=== PATIENT | female | born 1985 | race Caucasian/White ===

== ENCOUNTER 2018-12-13 03:43 | Inpatient (IN) | payer OTHER ==
[2018-12-13] MEDS ORDERED: Oxytocin 10 Units/1 ML SDV ONE (04:12)
[2018-12-13] MEDS ORDERED: Lidocaine 1% 50 ML MDV ONE (04:18)
--- NOTE | 2018-12-13 04:54 | PCM.LDHP ---
L&D History of Present Illness - General Date of Service: 12/13/18 Admit Problem/Dx: Admission Diagnosis/Problem Admission Diagnosis/Problem Source of Information: Patient History Limitations: Reports: No Limitations - History of Present Illness Introduction:: 33-year-old 001 ALLIE 12/11/18 estimated gestational age 40 weeks and 2 days presented to labor and delivery with history of contractions since 0230 hours, presenting at approximately 0335 hrs. Cervical exam check at that time showed patient was complete I was called to see patient at 0357 hrs. arriving at 0407 hrs. and delivery occurred at 0414 hrs. GBS negative. 05/26/18 A-, antibody screen negative, hemoglobin hematocrit/12.9/38.0 platelets 222,000, rubella immune, serology nonreactive, hepatitis B surface antigen negative, HIV negative, urine culture mixed zack suggestive of contamination, GC and chlamydia probe were negative. 09/17/18 hemoglobin/hematocrit 12.0 35.8 platelets 185,001 hour OB glucose screen 118. Patient given rogue M on 09/17/18. 11/18/18 group B strep negative. Patient had precipitous delivery after arrival at the hospital with position present (myself) Location, : Reports: Abdomen, Lower back, Pelvic Quality: Reports: Ache, Pressure Severity: Severe Pain Score: 9 Improves with: Reports: None Worsens with: Reports: None Past Medical History Neurological History: Reports: Migraines, Other (See Below) (History of pseudotumor cerebri 2008) H&P Review of Systems - Review of Systems: Review Of Systems: See Below General: Reports: No Symptoms HEENT: Reports: No Symptoms Pulmonary: Reports: No Symptoms Cardiovascular: Reports: No Symptoms Gastrointestinal: Reports: No Symptoms Genitourinary: Reports: No Symptoms Musculoskeletal: Reports: No Symptoms Skin: Reports: No Symptoms Psychiatric: Reports: No Symptoms Neurological: Reports: No Symptoms Hematologic/Lymphatic: Reports: No Symptoms Immunologic: Reports: No Symptoms L&D Exam - Exam Exam: See Below - OB Specific Fundal Height In cm: 41 Contraction Duration (sec): 60 Contraction Frequency (min): 2 Contraction Intensity: Strong Movement: Active Heart Tones: Present Heart Tones per Min: 130 Heart Rate (FHR) Variability: Moderate (6-25 bmp) Presentation: Vertex - Valladares Score Valladares Score Cervix Position: Anterior Valladares Score Consistency: Soft Valladares Score Effacement: >80% Valladares Score Dilation: > 5 cm Valladares Score 's Station: +1, +2 Valladares Score Total: 13 - Exam General: Alert, Oriented HEENT: Conjunctiva Clear, Mucosa Moist & Benjamin Perez Neck: Supple, Trachea Midline Lungs: Clear to Auscultation, Normal Respiratory Effort Cardiovascular: Regular Rate, Regular Rhythm GI/Abdominal Exam: Normal Bowel Sounds, Soft, Non-Tender Genitourinary: Normal external exam Extremities: Normal Inspection, Normal Range of Motion, Non-Tender, No Pedal Edema, Normal Capillary Refill Skin: Warm, Dry, Intact Psychiatric: Alert, Normal Affect, Normal Mood - Problem List (1) 40 weeks gestation of SNOMED Code(s): 09239075 ICD Code: Z3A.40 - 40 WEEKS GESTATION OF Status: Acute Current Visit: Yes (2) Meconium in amniotic fluid affecting management of mother, delivered SNOMED Code(s): 59295525, 873148513, 922336855, 986304728 ICD Code: O77.0 - LABOR AND DELIVERY COMPLICATED BY MECONIUM IN AMNIOTIC FLUID Status: Acute Current Visit: Yes (3) Precipitous delivery, delivered (current hospitalization) SNOMED Code(s): 612378963, 441756846 ICD Code: O62.3 - PRECIPITATE LABOR Status: Acute Current Visit: Yes (4) Second degree laceration of perineum, delivered, current hospitalization SNOMED Code(s): 322481122, 878324093 ICD Code: O70.1 - SECOND DEGREE PERINEAL LACERATION DURING DELIVERY Status : Acute Current Visit: Yes Problem List Initiated/Reviewed/Updated: No Assessment/Plan Comment:: Precipitous delivery
[2018-12-13] MEDS ORDERED: Sodium Chloride 0.9% 10 ML Syringe FLUSH PRN (04:59)
[2018-12-13] MEDS ORDERED: Nalbuphine 20 MG/ML 1 ML Syringe IVPUSH PRN (04:59)
[2018-12-13] MEDS ORDERED: Lactated Ringers 1,000 ML IV SCH (05:00)
--- NOTE | 2018-12-13 05:10 | PCM.DEL ---
L & D Note - General Info Date of Service: 12/13/18 Mother's Due Date: 12/11/18 - Delivery Note Labor: Spontaneous Delivery Outcome: Livebirth (Female liveborn Friday12/13/18 at 0414 hrs. LÁZARO, meconium-stained amnionic fluid, no nuchal cord, Apgars 8/9. Weight 30 6/4/60 grams/7 lbs. 10 oz.) Delivery Method: Spontaneous Vaginal Delivery-Single Infant Delivery Mode: Spontaneous Presentation: Left Occiput Anterior (LÁZARO) Nuchal Cord: None Prep: Povidone-Iodine (Betadine Anesthesia Type: None (For delivery no anesthesia), Local (4 para of second- degree laceration"Y-shaped") Anesthetic: Lidocaine (Xylocaine) 1% Plain (20 mL) Local Anesthetic Volume: Other (20 mL) Amniotic Fluid Description: Meconium Stained (Dr. Valladares was called and arrived shortly after delivery (precipitous labor)) Episiotomy Type: None Laceration: 2nd Degree ("Y-shaped" midline peritoneum) Suture type: Other (Monocryl) Suture size: 3-0 Placenta: Intact, Spontaneous (0 420 Friday12/13/18) Cord: 3 Vessels Estimated Blood Loss: 250 Resuscitation Needed: No : Suctioned, Bulb Syringe, Stimulated, Warmed, [place] Used, Warmer Used Provider: Miah Waters Score 1 min: 8 Score 5 min: 9 - General Info Date of Service: 12/13/18 Functional Status: Reports: Pain Controlled - Review of Systems General: Reports: No Symptoms HEENT: Reports: No Symptoms Pulmonary: Reports: No Symptoms Cardiovascular: Reports: No Symptoms Gastrointestinal: Reports: No Symptoms Genitourinary: Reports: No Symptoms Musculoskeletal: Reports: No Symptoms Skin: Reports: No Symptoms Neurological: Reports: No Symptoms Psychiatric: Reports: No Symptoms - Patient Data Med Orders - Current: Current Medications Lactated Ringer's (Ringers, Lactated) 1,000 mls @ 100 mls/hr IV ASDIRECTED MATILDA Nalbuphine HCl (Nubain) 10 mg IVPUSH Q2H PRN PRN Reason: pain Sodium Chloride (Saline Flush) 10 ml FLUSH ASDIRECTED PRN PRN Reason: Keep Vein Open Discontinued Medications Lidocaine HCl (Xylocaine 1%) Confirm Administered Dose 50 ml .ROUTE .STK-MED ONE Stop: 12/13/18 04:19 Oxytocin (Pitocin) Confirm Administered Dose 20 unit .ROUTE .STK-MED ONE Stop: 12/13/18 04:13 - Exam General: Alert, Oriented HEENT: Pupils Equal Neck: Supple Lungs: Clear to Auscultation, Normal Respiratory Effort Cardiovascular: Regular Rate, Regular Rhythm GI/Abdominal Exam: Normal Bowel Sounds, Soft, Non-Tender Extremities: Normal Inspection, Normal Range of Motion, Non-Tender, No Pedal Edema, Normal Capillary Refill Skin: Warm, Dry, Intact Psy/Mental Status: Alert, Normal Affect, Normal Mood - Problem List & Annotations (1) 40 weeks gestation of SNOMED Code(s): 31018495 Code(s): Z3A.40 - 40 WEEKS GESTATION OF Status: Acute Current Visit: Yes (2) Meconium in amniotic fluid affecting management of mother, delivered SNOMED Code(s): 38102269, 012710481, 419076507, 937868455 Code(s): O77.0 - LABOR AND DELIVERY COMPLICATED BY MECONIUM IN AMNIOTIC FLUID Status: Acute Current Visit: Yes (3) Precipitous delivery, delivered (current hospitalization) SNOMED Code(s): 950115246, 653602409 Code(s): O62.3 - PRECIPITATE LABOR Status: Acute Current Visit: Yes (4) Second degree laceration of perineum, delivered, current hospitalization SNOMED Code(s): 959213142, 601737788 Code(s): O70.1 - SECOND DEGREE PERINEAL LACERATION DURING DELIVERY Status: Acute Current Visit: Yes - Problem List Review Problem List Initiated/Reviewed/Updated: No - My Orders Last 24 Hours: My Active Orders 12/13/18 04:59 Patient Status [ADT] Routine Activity as Tolerated [RC] PFP Communication Order [RC] ASDIRECTED Non Stress Test [RC] PER UNIT ROUTINE Notify Provider [RC] PFP Notify Provider [RC] PRN Vital Signs [RC] PER UNIT ROUTINE CBC WITH AUTO DIFF [HEME] Stat RAPID PLASMA REAGIN,RPR [CHEM] Routine TYPE AND SCREEN [BBK] Stat Nalbuphine [Nubain] 10 mg IVPUSH Q2H PRN Sodium Chloride 0.9% [Saline Flush] 10 ml FLUSH ASDIRECTED PRN Electronic Heart Tones Ext w TOCO [WOMSER] Routine Electronic Heart Tones Internal [WOMSER] Per Unit Routine Peripheral IV Insertion Adult [OM.PC] Routine Resuscitation Status Routine 12/13/18 05:00 Heart Tones [RC] ASDIRECTED Peripheral IV Care [RC] . DIRECTED Lactated Ringers [Ringers, Lactated] 1,000 ml IV ASDIRECTED 12/13/18 05:02 Patient Status Manage Transfer [TRANSFER] Routine - Plan Plan:: Precipitous delivery
[2018-12-13] MEDS ORDERED: Acetaminophen 325 MG Tab PO PRN (06:00)
[2018-12-13] MEDS ORDERED: Lanolin 100% Cream 7 GM Tube TOP PRN (06:00)
[2018-12-13] MEDS ORDERED: Benzocaine/Menthol 20%-0.5% Spray 56 GM Canister TOP PRN (06:00)
[2018-12-13] MEDS ORDERED: Witch Hazel Medicated Pads 40/Jar TOP PRN (06:00)
[2018-12-13] MEDS ORDERED: Lidocaine 1% 50 ML MDV INJECT ONE (06:03)
[2018-12-13] MEDS ORDERED: Oxytocin 10 Units/1 ML SDV IM ONE (06:03)
[2018-12-13] MEDS: Ibuprofen 600 MG Tab PO PRN ×4 (06:28→21:08)
[2018-12-13] MEDS: Docusate Sodium 100 MG Cap PO PRN ×2 (11:13→21:08)
[2018-12-13] MEDS ORDERED: Calcium Carbonate 500 MG Tab.Chew PO PRN (20:57)
[2018-12-14] MEDS: Ibuprofen 600 MG Tab PO PRN ×2 (03:47→08:06)
--- NOTE | 2018-12-14 06:30 | PCM.DCSUM1 ---
Discharge Summary - Hospital Course Free Text/Narrative:: [facility] LIVE L/D Delivery Note Patient Name: LEONIE KAMINSKI Date of : 83 Patient Status: Inpatient Attending Provider: Miah Waters Date: 12/13/18 05:06 Initialization Date: 12/13/18 05:06 L & D Note - General Info Date of Service: 12/13/18 Mother's Due Date: 12/11/18 - Delivery Note Labor: Spontaneous Delivery Outcome: Livebirth (Female liveborn Friday12/13/18 at 0414 hrs. LÁZARO, meconium-stained amnionic fluid, no nuchal cord, Apgars 8/9. Weight 30 6/4/60 grams/7 lbs. 10 oz.) Infant Delivery Method: Spontaneous Vaginal Delivery-Single Infant Delivery Mode: Spontaneous Presentation: Left Occiput Anterior (LÁZARO) Nuchal Cord: None Prep: Povidone-Iodine (Betadine Anesthesia Type: None (For delivery no anesthesia), Local (4 para of second- degree laceration"Y-shaped") Anesthetic: Lidocaine (Xylocaine) 1% Plain (20 mL) Local Anesthetic Volume: Other (20 mL) Amniotic Fluid Description: Meconium Stained (Dr. Valladares was called and arrived shortly after delivery (precipitous labor)) Episiotomy Type: None Laceration: 2nd Degree ("Y-shaped" midline peritoneum) Suture type: Other (Monocryl) Suture size: 3-0 Placenta: Intact, Spontaneous (0 420 Friday12/13/18) Cord: 3 Vessels Estimated Blood Loss: 250 Resuscitation Needed: No Belle: Suctioned, Bulb Syringe, Stimulated, Warmed, Plover Used, Warmer Used Provider: Miah Waters Score 1 min: 8 Score 5 min: 9 - General Info Date of Service: 12/13/18 Functional Status: Reports: Pain Controlled - Review of Systems General: Reports: No Symptoms HEENT: Reports: No Symptoms Pulmonary: Reports: No Symptoms Cardiovascular: Reports: No Symptoms Gastrointestinal: Reports: No Symptoms Genitourinary: Reports: No Symptoms Musculoskeletal: Reports: No Symptoms Skin: Reports: No Symptoms Neurological: Reports: No Symptoms Psychiatric: Reports: No Symptoms - Patient Data Med Orders - Current: Current Medications Lactated Ringer's (Ringers, Lactated) 1,000 mls @ 100 mls/hr IV ASDIRECTED MATILDA Nalbuphine HCl (Nubain) 10 mg IVPUSH Q2H PRN PRN Reason: pain Sodium Chloride (Saline Flush) 10 ml FLUSH ASDIRECTED PRN PRN Reason: Keep Vein Open Discontinued Medications Lidocaine HCl (Xylocaine 1%) Confirm Administered Dose 50 ml .ROUTE .STK-MED ONE Stop: 12/13/18 04:19 Oxytocin (Pitocin) Confirm Administered Dose 20 unit .ROUTE .STK-MED ONE Stop: 12/13/18 04:13 - Exam General: Alert, Oriented HEENT: Pupils Equal Neck: Supple Lungs: Clear to Auscultation, Normal Respiratory Effort Cardiovascular: Regular Rate, Regular Rhythm GI/Abdominal Exam: Normal Bowel Sounds, Soft, Non-Tender Extremities: Normal Inspection, Normal Range of Motion, Non-Tender, No Pedal Edema, Normal Capillary Refill Skin: Warm, Dry, Intact Psy/Mental Status: Alert, Normal Affect, Normal Mood - Problem List & Annotations (1) 40 weeks gestation of SNOMED Code(s): 40822783 Code(s): Z3A.40 - 40 WEEKS GESTATION OF Status: Acute Current Visit: Yes (2) Meconium in amniotic fluid affecting management of mother, delivered SNOMED Code(s): 64532473, 695567599, 541150830, 454679886 Code(s): O77.0 - LABOR AND DELIVERY COMPLICATED BY MECONIUM IN AMNIOTIC FLUID Status: Acute Current Visit: Yes (3) Precipitous delivery, delivered (current hospitalization) SNOMED Code(s): 939307029, 315307103 Code(s): O62.3 - PRECIPITATE LABOR Status: Acute Current Visit: Yes (4) Second degree laceration of perineum, delivered, current hospitalization SNOMED Code(s): 605012398, 251944387 Code(s): O70.1 - SECOND DEGREE PERINEAL LACERATION DURING DELIVERY Status: Acute Current Visit: Yes - Problem List Review Problem List Initiated/Reviewed/Updated: No - My Orders Last 24 Hours: My Active Orders 12/13/18 04:59 Patient Status [ADT] Routine Activity as Tolerated [RC] PFP Communication Order [RC] ASDIRECTED Non Stress Test [RC] PER UNIT ROUTINE Notify Provider [RC] PFP Notify Provider [RC] PRN Vital Signs [RC] PER UNIT ROUTINE CBC WITH AUTO DIFF [HEME] Stat RAPID PLASMA REAGIN,RPR [CHEM] Routine TYPE AND SCREEN [BBK] Stat Nalbuphine [Nubain] 10 mg IVPUSH Q2H PRN Sodium Chloride 0.9% [Saline Flush] 10 ml FLUSH ASDIRECTED PRN Electronic Heart Tones Ext w TOCO [WOMSER] Routine Electronic Heart Tones Internal [WOMSER] Per Unit Routine Peripheral IV Insertion Adult [OM.PC] Routine Resuscitation Status Routine 12/13/18 05:00 Heart Tones [RC] ASDIRECTED Peripheral IV Care [RC] . DIRECTED Lactated Ringers [Ringers, Lactated] 1,000 ml IV ASDIRECTED 12/13/18 05:02 Patient Status Manage Transfer [TRANSFER] Routine - Plan Plan:: Precipitous delivery HPI Initial Comments: [facility] LIVE L/D Delivery Note Patient Name: LEONIE KAMINSKI Date of : 83 Patient Status: Inpatient Attending Provider: Miah Waters Date: 12/13/18 05:06 Initialization Date: 12/13/18 05:06 L & D Note - General Info Date of Service: 12/13/18 Mother's Due Date: 12/11/18 - Delivery Note Labor: Spontaneous Delivery Outcome: Livebirth (Female liveborn Friday12/13/18 at 0414 hrs. LÁZARO, meconium-stained amnionic fluid, no nuchal cord, Apgars 8/9. Weight 30 6/4/60 grams/7 lbs. 10 oz.) Delivery Method: Spontaneous Vaginal Delivery-Single Infant Delivery Mode: Spontaneous Presentation: Left Occiput Anterior (LÁZARO) Nuchal Cord: None Prep: Povidone-Iodine (Betadine Anesthesia Type: None (For delivery no anesthesia), Local (4 para of second- degree laceration"Y-shaped") Anesthetic: Lidocaine (Xylocaine) 1% Plain (20 mL) Local Anesthetic Volume: Other (20 mL) Amniotic Fluid Description: Meconium Stained (Dr. Valladares was called and arrived shortly after delivery (precipitous labor)) Episiotomy Type: None Laceration: 2nd Degree ("Y-shaped" midline peritoneum) Suture type: Other (Monocryl) Suture size: 3-0 Placenta: Intact, Spontaneous (0 420 Friday12/13/18) Cord: 3 Vessels Estimated Blood Loss: 250 Resuscitation Needed: No : Suctioned, Bulb Syringe, Stimulated, Warmed, Plover Used, Warmer Used Provider: Miah Waters Score 1 min: 8 Score 5 min: 9 - General Info Date of Service: 12/13/18 Functional Status: Reports: Pain Controlled - Review of Systems General: Reports: No Symptoms HEENT: Reports: No Symptoms Pulmonary: Reports: No Symptoms Cardiovascular: Reports: No Symptoms Gastrointestinal: Reports: No Symptoms Genitourinary: Reports: No Symptoms Musculoskeletal: Reports: No Symptoms Skin: Reports: No Symptoms Neurological: Reports: No Symptoms Psychiatric: Reports: No Symptoms - Patient Data Med Orders - Current: Current Medications Lactated Ringer's (Ringers, Lactated) 1,000 mls @ 100 mls/hr IV ASDIRECTED MATILDA Nalbuphine HCl (Nubain) 10 mg IVPUSH Q2H PRN PRN Reason: pain Sodium Chloride (Saline Flush) 10 ml FLUSH ASDIRECTED PRN PRN Reason: Keep Vein Open Discontinued Medications Lidocaine HCl (Xylocaine 1%) Confirm Administered Dose 50 ml .ROUTE .STK-MED ONE Stop: 12/13/18 04:19 Oxytocin (Pitocin) Confirm Administered Dose 20 unit .ROUTE .STK-MED ONE Stop: 12/13/18 04:13 - Exam General: Alert, Oriented HEENT: Pupils Equal Neck: Supple Lungs: Clear to Auscultation, Normal Respiratory Effort Cardiovascular: Regular Rate, Regular Rhythm GI/Abdominal Exam: Normal Bowel Sounds, Soft, Non-Tender Extremities: Normal Inspection, Normal Range of Motion, Non-Tender, No Pedal Edema, Normal Capillary Refill Skin: Warm, Dry, Intact Psy/Mental Status: Alert, Normal Affect, Normal Mood - Problem List & Annotations (1) 40 weeks gestation of SNOMED Code(s): 13166854 Code(s): Z3A.40 - 40 WEEKS GESTATION OF Status: Acute Current Visit: Yes (2) Meconium in amniotic fluid affecting management of mother, delivered SNOMED Code(s): 17314294, 720683499, 889729841, 171737606 Code(s): O77.0 - LABOR AND DELIVERY COMPLICATED BY MECONIUM IN AMNIOTIC FLUID Status: Acute Current Visit: Yes (3) Precipitous delivery, delivered (current hospitalization) SNOMED Code(s): 406612635, 844979249 Code(s): O62.3 - PRECIPITATE LABOR Status: Acute Current Visit: Yes (4) Second degree laceration of perineum, delivered, current hospitalization SNOMED Code(s): 416557034, 703776262 Code(s): O70.1 - SECOND DEGREE PERINEAL LACERATION DURING DELIVERY Status: Acute Current Visit: Yes - Problem List Review Problem List Initiated/Reviewed/Updated: No - My Orders Last 24 Hours: My Active Orders 12/13/18 04:59 Patient Status [ADT] Routine Activity as Tolerated [RC] PFP Communication Order [RC] ASDIRECTED Non Stress Test [RC] PER UNIT ROUTINE Notify Provider [RC] PFP Notify Provider [RC] PRN Vital Signs [RC] PER UNIT ROUTINE CBC WITH AUTO DIFF [HEME] Stat RAPID PLASMA REAGIN,RPR [CHEM] Routine TYPE AND SCREEN [BBK] Stat Nalbuphine [Nubain] 10 mg IVPUSH Q2H PRN Sodium Chloride 0.9% [Saline Flush] 10 ml FLUSH ASDIRECTED PRN Electronic Heart Tones Ext w TOCO [WOMSER] Routine Electronic Heart Tones Internal [WOMSER] Per Unit Routine Peripheral IV Insertion Adult [OM.PC] Routine Resuscitation Status Routine 12/13/18 05:00 Heart Tones [RC] ASDIRECTED Peripheral IV Care [RC] . DIRECTED Lactated Ringers [Ringers, Lactated] 1,000 ml IV ASDIRECTED 12/13/18 05:02 Patient Status Manage Transfer [TRANSFER] Routine - Plan Plan:: Precipitous delivery Brief History: [facility] LIVE . L/D Delivery Note. Patient Name: LEONIE KAMINSKI Record Number: [id number]. Date of : Patient Status: Inpatient. Attending Provider: Miah Waters Number: [id number]. Date: 12/13/18 05:06Initialization Date: 12/13/18 05:06. L & D Note. - General Info. Date of Service: 12/13/18. Mother's Due Date: 12/11/18. - Delivery Note. Labor: Spontaneous. Delivery Outcome: Livebirth ( Female liveborn Friday12/13/18 at 0414 hrs. LÁZARO, meconium-stained amnionic fluid , no nuchal cord, Apgars 8/9. Weight 30 6/4/60 grams/7 lbs. 10 oz.). Infant Delivery Method: Spontaneous Vaginal Delivery-Single. Delivery Mode: Spontaneous. Presentation: Left Occiput Anterior (LÁZARO). Nuchal Cord: None. Prep: Povidone-Iodine (Betadine. Anesthesia Type: None (For delivery no anesthesia), Local (4 para of second-degree laceration"Y-shaped"). Anesthetic: Lidocaine (Xylocaine) 1% Plain (20 mL). Local Anesthetic Volume: Other (20 mL) . Amniotic Fluid Description: Meconium Stained (Dr. Valladares was called and arrived shortly after delivery (precipitous labor)). Episiotomy Type: None. Laceration: 2nd Degree ("Y-shaped" midline peritoneum). Suture type: Other ( Monocryl). Suture size: 3-0. Placenta: Intact, Spontaneous (0 420 Friday). Cord: 3 Vessels. Estimated Blood Loss: 250. Resuscitation Needed: No. : Suctioned, Bulb Syringe, Stimulated, Warmed, Plover Used, Warmer Used. Provider: Miah Waters. Score 1 min: 8. Score 5 min: 9. - General Info. Date of Service: 12/13/18. Functional Status : Reports: Pain Controlled. - Review of Systems. General: Reports: No Symptoms. HEENT: Reports: No Symptoms. Pulmonary: Reports: No Symptoms. Cardiovascular: Reports: No Symptoms. Gastrointestinal: Reports: No Symptoms. Genitourinary: Reports: No Symptoms. Musculoskeletal: Reports: No Symptoms. Skin: Reports: No Symptoms. Neurological: Reports: No Symptoms. Psychiatric: Reports: No Symptoms. - Patient Data. Med Orders - Current: Current Medications. Lactated Ringer's (Ringers, Lactated) 1,000 mls @ 100 mls/hr IV ASDIRECTED MATILDA. Nalbuphine HCl (Nubain) 10 mg IVPUSH Q2H PRN. PRN Reason: pain. Sodium Chloride (Saline Flush) 10 ml FLUSH ASDIRECTED PRN. PRN Reason: Keep Vein Open. Discontinued Medications. Lidocaine HCl (Xylocaine 1%) Confirm Administered Dose 50 ml .ROUTE .STK-MED ONE. Stop: 12/13/18 04:19. Oxytocin (Pitocin) Confirm Administered Dose 20 unit .ROUTE .STK-MED ONE. Stop : 12/13/18 04:13. - Exam. General: Alert, Oriented. HEENT: Pupils Equal. Neck: Supple. Lungs: Clear to Auscultation, Normal Respiratory Effort. Cardiovascular: Regular Rate, Regular Rhythm. GI/Abdominal Exam: Normal Bowel Sounds, Soft, Non-Tender. Extremities: Normal Inspection, Normal Range of Motion, Non-Tender, No Pedal Edema, Normal Capillary Refill. Skin: Warm, Dry, Intact. Psy/Mental Status: Alert, Normal Affect, Normal Mood. - Problem List & Annotations. (1) 40 weeks gestation of . SNOMED Code(s): 49192033. Code(s): Z3A.40 - 40 WEEKS GESTATION OF Status: Acute Current Visit: Yes. (2) Meconium in amniotic fluid affecting management of mother, delivered. SNOMED Code(s): 75838665, 816177249, 589479616, 937055474. Code(s) : O77.0 - LABOR AND DELIVERY COMPLICATED BY MECONIUM IN AMNIOTIC FLUID Status : Acute Current Visit: Yes. (3) Precipitous delivery, delivered (current hospitalization). SNOMED Code(s): 245723925, 990927296. Code(s): O62.3 - PRECIPITATE LABOR Status: Acute Current Visit: Yes. (4) Second degree laceration of perineum, delivered, current hospitalization. SNOMED Code(s): 989960607, 175940221. Code(s): O70.1 - SECOND DEGREE PERINEAL LACERATION DURING DELIVERY Status: Acute Current Visit: Yes. - Problem List Review. Problem List Initiated/Reviewed/Updated: No. - My Orders. Last 24 Hours: My Active Orders. 12/13/18 04:59. Patient Status [ADT] Routine. Activity as Tolerated [RC] PFP. Communication Order [RC] ASDIRECTED. Non Stress Test [RC] PER UNIT ROUTINE. Notify Provider [RC] PFP. Notify Provider [RC] PRN. Vital Signs [RC] PER UNIT ROUTINE. CBC WITH AUTO DIFF [HEME] Stat. RAPID PLASMA REAGIN,RPR [CHEM] Routine. TYPE AND SCREEN [BBK] Stat. Nalbuphine [Nubain] 10 mg IVPUSH Q2H PRN. Sodium Chloride 0.9% [Saline Flush ] 10 ml FLUSH ASDIRECTED PRN. Electronic Heart Tones Ext w TOCO [WOMSER ] Routine. Electronic Heart Tones Internal [WOMSER] Per Unit Routine. Peripheral IV Insertion Adult [OM.PC] Routine. Resuscitation Status Routine. 12/13/18 05:00. Heart Tones [RC] ASDIRECTED. Peripheral IV Care [RC] . DIRECTED. Lactated Ringers [Ringers, Lactated] 1,000 ml IV ASDIRECTED. 05:02. Patient Status Manage Transfer [TRANSFER] Routine. - Plan. Plan: : Precipitous delivery Diagnosis: Stroke: No - Discharge Data Discharge Date: 12/14/18 Discharge Disposition: Home, Self-Care 01 Condition: Good - Discharge Diagnosis/Problem(s) (1) 40 weeks gestation of SNOMED Code(s): 12247926 ICD Code: Z3A.40 - 40 WEEKS GESTATION OF Status: Acute Current Visit: Yes (2) Meconium in amniotic fluid affecting management of mother, delivered SNOMED Code(s): 80065485, 092127429, 924905108, 787494970 ICD Code: O77.0 - LABOR AND DELIVERY COMPLICATED BY MECONIUM IN AMNIOTIC FLUID Status: Acute Current Visit: Yes (3) Precipitous delivery, delivered (current hospitalization) SNOMED Code(s): 956333295, 751455306 ICD Code: O62.3 - PRECIPITATE LABOR Status: Acute Current Visit: Yes (4) Second degree laceration of perineum, delivered, current hospitalization SNOMED Code(s): 386369333, 414338704 ICD Code: O70.1 - SECOND DEGREE PERINEAL LACERATION DURING DELIVERY Status : Acute Current Visit: Yes - Patient Summary/Data Complications: None Consults: None Hospital Course: Uneventful - Patient Instructions Diet: Usual Diet as Tolerated Driving: Do Not Drive ([place]un[place] 48 hours) Showering/Bathing: May Shower Notify Provider of: Fever, Increased Pain, Swelling and Redness, Drainage, Nausea and/or Vomiting - Discharge Plan *PRESCRIPTION DRUG MONITORING PROGRAM REVIEWED*: Not Applicable *COPY OF PRESCRIPTION DRUG MONITORING REPORT IN PATIENT CARISSA: Not Applicable Home Medications: Home Meds Acetaminophen [Tylenol] 650 mg PO Q6H PRN tablet 12/14/18 [Rx] Docusate Sodium [Colace] 100 mg PO BID PRN cap 12/14/18 [Rx] Ibuprofen [Motrin] 600 mg PO Q6H PRN tablet 12/14/18 [Rx] Lanolin [Lansinoh HPA] 1 applic TOP ASDIRECTED PRN tube 12/14/18 [Rx] Witch Mary [Tucks] 1 pad TOP ASDIRECTED PRN pad 12/14/18 [Rx] Referrals: Reginald Herman MD [Physician] - (Patient will call today for appointment to see Dr. Herman in 2 weeks) - Discharge Summary/Plan Comment DC Time >30 min.: No - Patient Data Vitals - Most Recent: Last Vital Signs Temp 98.1 F 12/14/18 03:35 Pulse 77 12/14/18 03:35 Resp 16 12/14/18 03:35 BP 90/61 12/14/18 03:35 Pulse Ox 95 12/14/18 03:35 Weight - Most Recent: 238 lb I&O - Last 24 hours: Intake & Output 12/13/18 12/13/18 12/14/18 14:59 22:59 06:59 Intake Total 0 122 Balance 0 122 Lab Results - Last 24 hrs: Laboratory Results - last 24 hr 12/13/18 Range/Units 14:05 Blood Type A NEGATIVE Gel Antibody Screen Negative Screen 3 ros/5 flds - neg RhIG Candidate? Yes Rhogam Indicated Yes, baby rh pos H Med Orders - Current: Current Medications Acetaminophen (Tylenol) 650 mg PO Q4H PRN PRN Reason: mild pain or fever Benzocaine/Menthol (Dermoplast Pain Relief [place]) 0 gm TOP ASDIRECTED PRN PRN Reason: Perineal Comfort Measure Last Admin: 12/13/18 06:26 Dose: 1 canister Calcium Carbonate/Glycine (Tums) 1,000 mg PO Q2H PRN PRN Reason: Indigestion Last Admin: 12/13/18 21:09 Dose: 1,000 mg Docusate Sodium (Colace) 100 mg PO BID PRN PRN Reason: Constipation Last Admin: 12/13/18 21:08 Dose: 100 mg Emollient Ointment (Lansinoh Hpa) 0 gm TOP ASDIRECTED PRN PRN Reason: Sore Nipples Ibuprofen (Motrin) 600 mg PO Q4H PRN PRN Reason: Mild pain or fever Last Admin: 12/14/18 03:47 Dose: 600 mg Witch Mary (Tucks) 1 pad TOP ASDIRECTED PRN PRN Reason: Perineal Comfort Measure Discontinued Medications Lactated Ringer's (Ringers, Lactated) 1,000 mls @ 100 mls/hr IV ASDIRECTED MATILDA Lidocaine HCl (Xylocaine 1%) Confirm Administered Dose 50 ml .ROUTE .[employer] ONE Stop: 12/13/18 04:19 Last Admin: 12/13/18 21:19 Dose: Not Given Lidocaine HCl (Xylocaine 1%) 50 ml INJECT ONETIME ONE Stop: 12/13/18 06:04 Last Admin: 12/13/18 06:29 Dose: 50 ml Nalbuphine HCl (Nubain) 10 mg IVPUSH Q2H PRN PRN Reason: pain Oxytocin (Pitocin) Confirm Administered Dose 20 unit .ROUTE .STTripOvation-[employer] ONE Stop: 12/13/18 04:13 Last Admin: 12/13/18 21:18 Dose: Not Given Oxytocin (Pitocin) 20 unit IM ONETIME ONE Stop: 12/13/18 06:04 Last Admin: 12/13/18 06:29 Dose: 20 unit Sodium Chloride (Saline Flush) 10 ml FLUSH ASDIRECTED PRN PRN Reason: Keep Vein Open
[2018-12-14] MEDS: Docusate Sodium 100 MG Cap PO PRN (08:05)
== END 2018-12-14 12:50 | disposition home or self-care (01) | DRG 807 ==
LOC: JD.OB 03:43 → JD.OBCHECK 03:43 → JD.OB 03:44 → OBSVTOIN 04:14
PROVIDERS: ADMIT Obstetrics & Gynecology; ATTEND Obstetrics & Gynecology
PROC: 0KQM0ZZ Repair Perineum Muscle, Open Approach (ICD-10-PCS; principal; 2018-12-13)
PROC: 10E0XZZ Delivery of Products of Conception, External Approach (ICD-10-PCS; principal; 2018-12-13)
DX: O99.354 Diseases of the nervous system complicating childbirth (principal); Z37.0 Single live birth; O77.0 Labor and delivery complicated by meconium in amniotic fluid; O70.1 Second degree perineal laceration during delivery; O62.3 Precipitate labor; Z3A.40 40 weeks gestation of pregnancy; G43.909 Migraine, unspecified, not intractable, without status migrainosus
CPT/HCPCS: 36415; 36430; 59025; 59409; 85025; 85461; 86592; 86850; 86900; 86901; A9270-GY; J2001; J2590; J2790